=== PATIENT | male | born 1935 | race Caucasian/White ===

== ENCOUNTER → 2019-07-30 13:54 | Outpatient (CLI) | payer MEDICARE, OTHER, SELFPAY ==
--- NOTE | 2019-07-30 | DI.ECHO.S_ITS ---
[place] [facility]---------+ [facility] +---------+ : : [address] : [address] : : : : [id number] : : : : Phone: [phone]+ Echocardiogram Report + + :Name: HOWIE ALVAREZ Study Date: 07/30/2019 Height: 68 in : :[facility] Weight: 195 lb : : Gender: Male BSA: 2.0 m2 : :: 1935 Age: 84 yrs BP: 152/84 mmHg: :Reason For Study: Chest pain : : Performed By: Renny Mark : :Referring: RICKEY SWIFT : + + Interpretation Summary The left ventricle is normal in size. The ejection fraction is estimated to be 55-60%. The right ventricle is normal size. The right ventricular systolic function is normal. There is mild to moderate mitral regurgitation. There is mild to moderate pulmonic regurgitation. Procedure: A two-dimensional transthoracic echocardiogram with color flow and Doppler was performed. The study quality was technically adequate. There is no prior echocardiogram noted for this patient. The patient was in normal sinus rhythm during the exam. Left Ventricle: The left ventricle is normal in size. There is mild concentric left ventricular hypertrophy. There is no thrombus. The ejection fraction is estimated to be 55-60%. There is a subtle hypokinesis of mid inferior septum. Diastolic parameters suggest a relaxation abnormality of the left ventricle, consistent with probable normal filling pressures. Right Ventricle: The right ventricle is normal size. The right ventricular systolic function is normal. Atria: The left atrial size is normal. Right atrial size is normal. The interatrial septum is intact with no evidence for an atrial septal defect. Mitral Valve: There is mild mitral annular calcification. The mitral valve chordae are thickened and/or calcified. There is mild to moderate mitral regurgitation. Aortic Valve: The aortic valve is trileaflet. The aortic valve opens well. There is mild aortic valve sclerosis. There is no aortic valve stenosis. There is trace aortic regurgitation. Tricuspid Valve: The tricuspid valve is normal in structure and function. There is trace tricuspid regurgitation. Pulmonary artery pressures cannot be estimated because of the lack of a measurable TR jet velocity. Pulmonic Valve: The pulmonic valve is not well seen, but is grossly normal. There is mild to moderate pulmonic regurgitation. Great Vessels: The aortic root is normal size. The dimensions of the ascending aorta are normal. The pulmonary artery is normal size. The inferior vena cava was not well visualized. Pericardium/ Pleura There is no pericardial effusion. There is no pleural effusion. MMode/2D Measurements & Calculations LVIDd: 3.5 cm LVOT diam: 2.0 cm LVIDs: 2.4 cm Ao root diam: 3.2 cm FS: 31.7 % asc Aorta Diam: 3.3 cm EPSS: 0.68 cm IVSd: 1.2 cm LVPWd: 1.2 cm LV basurto. diameter/BSA (cm/m^2): 1.7 LV sys. diameter/BSA (cm/m^2): 1.2 LA A2 area: 20.5 cm2 RA long axis: 5.1 cm LA A4 area: 18.1 cm2 RA area: 14.4 cm2 LA length (vol): 5.3 cm RA vol: 34.5 ml LA vol: 59.7 ml RA : 17.0 ml/m2 LA vol index: 29.5 ml/m2 TAPSE: 1.7 cm Doppler Measurements & Calculations Ao V2 max: 157.0 cm/sec LVOT Max Gene: 122.7 cm/sec Ao V2 mean: 112.2 cm/sec LV V1 max P.0 mmHg Ao max P.9 mmHg LV V1 VTI: 28.3 cm Ao mean P.6 mmHg MOUNA(I,D): 2.5 cm2 Ao V2 VTI: 34.9 cm MOUNA(V,D): 2.4 cm2 sev ratio: 0.81 MOUNA indexed to BSA (cm^2/m^2): 1.2 MV E max gene: 71.1 cm/sec TR max gene: 246.8 cm/sec MV A max gene: 108.1 cm/sec TR max P.4 mmHg MV E/A: 0.66 PA V2 max: 95.5 cm/sec Med Peak E' Gene: 5.2 cm/sec PA V2 mean: 71.5 cm/sec E/E' med: 13.8 PA mean P.2 mmHg Lat Peak E' Gene: 6.1 cm/sec PA Accel Time: 0.09 sec E/E' lat: 11.7 E/e' average: 12.7 MV dec time: 0.22 sec SV(LVOT): 86.5 ml Reading Physician:01:00 PM
== END ==
PROVIDERS: PCP Internal Medicine; Visit Provider Physician Assistant Medical
DX: I34.0 Nonrheumatic mitral (valve) insufficiency (principal); I37.1 Nonrheumatic pulmonary valve insufficiency; R07.9 Chest pain, unspecified
CPT/HCPCS: 93306

== ENCOUNTER → 2019-09-09 09:48 | Outpatient (CLI) | payer MEDICARE, OTHER, SELFPAY ==
--- NOTE | 2019-09-10 04:35 | DI.NM.S_ITS ---
DATE OF SERVICE: PROCEDURE: Exercise perfusion study. DATE OF STUDY: 09/09/2019. INDICATIONS: Exertional shortness of breath with underlying right bundle branch block, hypertension, hyperlipidemia. RADIOPHARMACEUTICAL: 25.0 millicurie technetium-99m Myoview intravenous was injected at stress and 15.0 millicurie technetium-99m Myoview intravenous was injected at rest. CARDIAC STRESS: The patient underwent exercise perfusion study under the supervision of an attending staff. He walked on Franklin protocol for 5 minutes 4 seconds, achieved 93% of target heart rate with normal blood pressure response, functional aerobic impairment -9% and 7.0 METS of workload. Baseline rhythm was sinus with right bundle branch block. During stress and recovery, patient has some isolated PVCs with left axis during PVcs, however, no persistent left anterior fascicular block seen. No sustained ventricular tachycardia. The patient did not have any chest pain. RAW DATA: There is increased subdiaphragmatic activity. GATED STUDY: Stress LV ejection fraction 71% and resting LV ejection fraction 69% without any obvious wall motion abnormalities. Resting end-diastolic volume 84 mL. TID ratio 1.11, which is within normal limits. Lung heart ratio 0.40, which is within normal limits. MYOCARDIAL PERFUSION SCAN: Stress supine, resting supine and stress prone images were compared to each other. Stress supine images revealed small size mildly decreased perfusion of basal inferior wall as well as basal inferior septum, which got resolved during prone images suggestive of diaphragmatic tissue attenuation artifact. No convincing ischemia infarction pattern. CONCLUSION: I will call this study a normal myocardial perfusion study with evidence of diaphragmatic tissue attenuation artifact which got improved during prone images. LV function is preserved. Functional aerobic impairment -9%. Overall this is a low risk myocardial perfusion scan. Bari Mackey - [employer] OPERATOR/fn/cs doc#: [id number]/job#: [id number] dd: 09/09/2019 17:06:00 dt: 09/10/2019 04:25:00 DICTATING MD/COPIES TO: Aurelia Noel MD COPIES MNE: BRITTNEE;
== END ==
PROVIDERS: PCP Internal Medicine; Referring Provider Internal Medicine Cardiovascular Disease; Visit Provider Internal Medicine Cardiovascular Disease
DX: R07.9 Chest pain, unspecified (principal); R06.02 Shortness of breath; I45.10 Unspecified right bundle-branch block; R06.09 Other forms of dyspnea; I10 Essential (primary) hypertension; E78.5 Hyperlipidemia, unspecified
CPT/HCPCS: 78452; 93017; A9502

== ENCOUNTER → 2020-06-14 11:25 | Outpatient (CLI) | payer MEDICARE, OTHER, SELFPAY ==
--- NOTE | 2020-06-14 | DI.CT.S_ITS ---
PROCEDURE: CT SINUS SCREEN WO CON INDICATIONS: POSTERIOR EAR PAIN TECHNIQUE: Noncontrast 3.0 mm axial images acquired from the frontal sinuses to the mid-sella, with coronal and sagittal reformats. For radiation dose reduction, the following was used: automated exposure control, adjustment of mA and/or kV according to patient size. COMPARISON: None. FINDINGS: Image quality: Excellent. Maxillary Sinuses: No bony remodeling or destruction. Moderate mucosal thickening is seen involving the posterior right maxillary sinus, with mild mucosal thickening elsewhere within the right maxillary sinus. There is minimal mucosal thickening involving the inferior left maxillary sinus. Ethmoid Air Cells: No bony remodeling or destruction. Sinuses are clear. Sphenoid Sinuses: No bony remodeling or destruction. Sinuses are clear. Frontal Sinuses: No bony remodeling or destruction. Mild mucosal thickening can be seen medially and inferiorly. Ostiomeatal Complexes: Ostiomeatal complexes are patent, yet they are constitutionally narrowed, with bilateral Chapito cells. Miscellaneous: Visualized intra-orbital contents are normal. No ashanti bullosa or paradoxical turbinate curvature. There is mild left nasal septal deviation. IMPRESSION: Focal right maxillary sinus disease, with milder mucosal thickening seen elsewhere. Constitutionally narrowed ostiomeatal complexes. Mild leftward nasal septal deviation. Dictated by: Cameron Mcmillan M.D. on 06/14/2020 at 11:53 Approved by: Cameron Mcmillan M.D. on 06/14/2020 at 11:55
== END ==
PROVIDERS: PCP Internal Medicine; Referring Provider Physician Assistant; Visit Provider Physician Assistant
DX: H92.03 Otalgia, bilateral (principal); J32.0 Chronic maxillary sinusitis; J34.2 Deviated nasal septum
CPT/HCPCS: 70486

== ENCOUNTER → 2022-01-29 15:04 | Outpatient (CLI) | payer MEDICARE, OTHER, SELFPAY ==
--- NOTE | 2022-01-29 | DI.ECHO.S_ITS ---
[place] [facility]---------+ [facility] +---------+ : : [address] : [address] : : : : [id number] : : : : Phone: [phone]---------+ Echocardiogram Report + + :Name: HOWIE ALVAREZ Study Date: 01/29/2022 Height: 67 in : :[facility] ReadingLocation: Weight: 185 lb : : Gender: Male BSA: 2.0 m2 : :: 1935 Age: 87 yrs BP: 180/91 mmHg: :Reason For Study: Dyspnea : :Ordering Physician: GARCIA, : :ZOILA Performed By: Raphael Cortez : :Referring: ZOILA RAMOS : + + Interpretation Summary 1) Normal left ventricular thickness, size, wall motion, and systolic function (EF 55-60%). 2) Normal right ventricular size and function. 3) No significant valvular abnormalities. 4) Hypertension present during the study (BP 180/91mm Hg). 5) Compared to the Echo done 07/30/2019,mitral regurgitation has decreased from mild-moderate to mild on this study. Procedure: A two-dimensional transthoracic echocardiogram with color flow and Doppler was performed. The study quality was technically adequate. Comparison is made with the echocardiogram of 07/30/2019. Left Ventricle: The left ventricle is normal in size and wall thickness. Left ventricular systolic function is normal. The ejection fraction is estimated to be 55-60%. There are no focal wall motion abnormalities. Diastolic function could not be accurately assessed due to unobtainable data. Right Ventricle: The right ventricle is normal in size and function. Atria: Both atria are normal in size. The interatrial septum grossly appears intact with no obvious evidence for an atrial septal defect. Mitral Valve: The mitral valve is normal in structure and function. There is mild mitral regurgitation. Aortic Valve: There is mild aortic valve sclerosis. There is no aortic valve stenosis. No aortic regurgitation is present. Tricuspid Valve: The tricuspid valve is normal in structure and function. There is trace tricuspid regurgitation. Pulmonary artery pressures cannot be estimated because of the lack of a measurable TR jet velocity. Pulmonic Valve: The pulmonic valve is not well seen, but is grossly normal. There is mild pulmonic regurgitation. Great Vessels: The aortic root is normal size. The dimensions of the ascending aorta are normal. The IVC is of normal diameter and collapses greater than 50% with a sniff. This suggests a low right atrial pressure of 3 mm Hg. Pericardium/ Pleura There is no pericardial effusion. There is no pleural effusion. MMode/2D Measurements & Calculations LVIDd: 4.8 cm LVOT diam: 2.0 cm LVIDs: 3.5 cm Ao root diam: 3.4 cm FS: 27.1 % asc Aorta Diam: 3.3 cm IVSd: 1.1 cm LVPWd: 1.0 cm LV basurto. diameter/BSA (cm/m^2): 2.5 LV sys. diameter/BSA (cm/m^2): 1.8 LA dimension: 3.1 cm RA long axis: 4.6 cm LA A2 area: 20.8 cm2 LA A4 area: 16.9 cm2 LA length (vol): 5.7 cm LA vol: 52.7 ml LA vol index: 26.9 ml/m2 TAPSE_phl: 2.3 cm Doppler Measurements & Calculations Ao V2 max: 159.0 cm/sec LVOT Max Robbie: 92.0 cm/sec Ao V2 mean: 115.0 cm/sec LV V1 max P.4 mmHg Ao max P.0 mmHg LV V1 VTI: 22.9 cm Ao mean P.0 mmHg MOUNA(I,D): 1.9 cm2 Ao V2 VTI: 36.7 cm MOUNA(V,D): 1.8 cm2 sev ratio: 0.62 MOUNA indexed to BSA (cm^2/m^2): 0.98 MV E max robbie: 70.3 cm/sec SV(LVOT): 70.6 ml MV A max robbie: 94.7 cm/sec MV E/A: 0.74 Med Peak E' Robbie: 7.8 cm/sec E/E' med: 9.0 Lat Peak E' Robbie: 9.7 cm/sec E/E' lat: 7.3 E/e' average: 8.1 MV dec time: 0.21 sec AV VR_phl: 0.58 MV P1/2t-pr_phl: 61.0 msec MOUNA(VTI)/BSA_phl: 0.72 Reading Physician:01:26 PM
== END ==
PROVIDERS: PCP Internal Medicine; Referring Provider Internal Medicine Cardiovascular Disease; Visit Provider Internal Medicine Cardiovascular Disease
DX: R06.00 Dyspnea, unspecified (principal); I08.0 Rheumatic disorders of both mitral and aortic valves
CPT/HCPCS: 93306

== ENCOUNTER → 2022-02-12 11:17 | Outpatient (CLI) | payer MEDICARE, OTHER, SELFPAY ==
--- NOTE | 2022-02-12 11:27 | DI.CT.S_ITS ---
PROCEDURE: CT ABDOMEN PELVIS WO/W CON INDICATIONS: Gross hematuria TECHNIQUE: Optional 5 mm thick noncontrast images acquired from the diaphragm to the symphysis pubis. After the administration of intravenous contrast, 5 mm thick images acquired from the diaphragm to the symphysis pubis after a 10-minute delay. 2 mm thick coronal and sagittal reformats were then performed of the kidneys and ureters. For radiation dose reduction, the following was used: automated exposure control, adjustment of mA and/or kV according to patient size. COMPARISON: None. FINDINGS: Image quality: Excellent. Lung bases: Lung bases are clear. Heart size is normal. Urinary system: Both kidneys are normal in size, without hydronephrosis. There is a punctate calcification within the inferior right kidney. Simple left inferior pole renal cyst is noted. There is a focus of decreased attenuation within the superior posterior right renal pole measuring 9 mm. Hounsfield units are greater than expected for a simple cyst. No perinephric fat stranding. There is normal bilateral renal enhancement. Renal calyces appear normal in morphology when filled with contrast. Opacified portions of both ureters demonstrate normal caliber. Bladder wall thickness is normal. No calcified bladder stones. Other solid organs: Liver is normal in size and enhancement. Gallbladder is unremarkable . Biliary system is non dilated. Pancreas enhances normally. Spleen is normal in size and enhancement. No adrenal nodules. Peritoneum and bowel: Bowel loops demonstrate normal wall thickness and caliber. No free fluid or air. Colonic diverticula are present without associated inflammatory change. Nodes and vessels: No retroperitoneal or mesenteric adenopathy by size criteria. Aorta and inferior vena cava are normal in size. Abdominal wall: No ventral hernias. Pelvis: No pathologic free pelvic fluid. No inguinal hernias or adenopathy. Bones: No suspicious bony lesions. No vertebral body compression fractures. L4-5 fusion. IMPRESSION: Simple left renal cyst. Focus of low attenuation within the right kidney with Hounsfield units greater than expected for a simple cyst. It is overall nonspecific in appearance and could represent a complex cyst, hemangioma or potentially very small renal cell neoplasm. Focal ultrasound of this region is recommended for further evaluation. Diverticulosis. Dictated by: Daksha Valdez M.D. on 02/12/2022 at 12:38 Approved by: Daksha Valdez M.D. on 02/12/2022 at 13:37
== END ==
PROVIDERS: PCP Internal Medicine; Referring Provider Physician Assistant Medical; Visit Provider Physician Assistant Medical
DX: R31.0 Gross hematuria (principal); N28.1 Cyst of kidney, acquired; K57.90 Diverticulosis of intestine, part unspecified, without perforation or abscess without bleeding
CPT/HCPCS: 74178